=== PATIENT | male | born 1940 | race Two or more races ===

== ENCOUNTER 2021-05-23 17:53 | Inpatient (IN) | payer OTHER ==
[~2021-05-23] VITALS: Ht 177.8 cm; Wt 105.3 kg
[2021-05-23] MEDS ORDERED: FUROSEMIDE 40 MG/4 ML VIAL IV ONE (19:15)
[2021-05-23 19:18] LABS: Basophils # (auto) 0 10 ^3/uL (0-0.2); Basophils % (auto) 0.2 % (0.0-2.0); Eosinophils # (auto) 0 10 ^3/uL (0-0.8); Eosinophils % (auto) 0.1 % (0.0-7.0); Hematocrit 32.7 % (41.0-53.0); Lymphocytes # (auto) 0.7 10 ^3/uL (0.4-5.4); Lymphocytes % (auto) 7.1 % (10.0-50.0); Mean Corpuscular Hemoglobin 31.7 pg (28.0-32.0); Mean Corpuscular Hgb Conc. 33.5 g/dL (32.0-36.0); Mean Corpuscular Volume 94.7 fL (80.0-100.0); Monocytes # (auto) 0.5 10 ^3/uL (0-1.3); Monocytes % (auto) 4.8 % (0.0-12.0); Neutrophils # (auto) 8.5 10 ^3/uL (1.6-8.6); Neutrophils % (auto) 87.8 % (37.0-80.0); Red Blood Cells 3.46 10^6/uL (4.5-5.90); Red Cell Distribution Width 15.7 % (11.8-14.3); White Blood Cell 9.6 10^3/uL (4.4-10.8)
[2021-05-23 19:29] LABS: BUN/Creatinine Ratio 3.6; Calcium 7.5 mg/dL (8.5-10.1)
[2021-05-23 19:34] LABS: Bilirubin, Total 0.8 mg/dL (0.2-1.0); Total Protein 7.7 g/dL (6.4-8.2)
[2021-05-23 19:46] LABS: Potassium 6.8 mmol/L (3.5-5.1)
[2021-05-23] MEDS ORDERED: InsuLIN REG 1unit/0.01ml Soln (100units/ml) IV ONE (20:00)
[2021-05-23] MEDS ORDERED: SODIUM BICARBONATE 8.4% INJ 50ML SYRINGE IV ONE (20:00)
[2021-05-23] MEDS ORDERED: SODIUM ZIRCONIUM CYCL 10 GM PAK PO ONE (20:00)
[2021-05-23] MEDS ORDERED: DEXTROSE (50%) 50ML SYRG IV ONE (20:00)
[2021-05-23] MEDS ORDERED: ONDANSETRON HCL 4 MG/2 ML VIAL IV PRN (21:00)
[2021-05-23] MEDS ORDERED: ALBUTEROL SULF 2.5 MG/0.5ML(0.5%) NEB SOLN NEB ONE (21:00)
[2021-05-23] MEDS ORDERED: DEXTROSE (50%) 50ML SYRG IV PRN (21:00)
[2021-05-23] MEDS ORDERED: MORPHINE SULFATE INJECTION 2 MG/ML SYRG IV PRN (21:00)
[2021-05-23] MEDS ORDERED: cefTRIAXone 1GM/50ML D5W 50 ML IV ONE (21:00)
[2021-05-23] MEDS ORDERED: NITROGLYCERIN 0.4 MG SL TAB SL PRN (21:00)
[2021-05-23] MEDS ORDERED: ACETAMINOPHEN 325 MG TAB PO PRN (21:00)
[2021-05-23] MEDS ORDERED: cloNIDine HCL 0.1 MG TAB PO PRN (21:00)
[2021-05-23] MEDS ORDERED: ALBUTEROL SULF 2.5 MG/0.5ML(0.5%) NEB SOLN NEB PRN (21:00)
[2021-05-23] MEDS ORDERED: ALBUTEROL SULF 2.5 MG/0.5ML(0.5%) NEB SOLN ONE (21:13)
[2021-05-23 21:46] LABS: Lactic Acid w/Reflex 2.3 mmol/L (0.4-2.0)
[2021-05-23] MEDS ORDERED: AZITHROMYCIN 500MG/ 250ML 250 ML IV ONE (22:00)
[2021-05-23] MEDS: ATORVASTATIN 20 MG TAB PO SCH (22:00)
[2021-05-23] MEDS: InsuLIN REG 1unit/0.01ml Soln (100units/ml) SC SCH (23:45)
[2021-05-23] MEDS: ACCU-CHEK COMFORT CURVE STRIP VI SCH (23:45)
[2021-05-24 02:02] VITALS: BP 131/64
[2021-05-24] MEDS: ACCU-CHEK COMFORT CURVE STRIP VI SCH ×4 (06:35→22:26)
[2021-05-24] MEDS: InsuLIN REG 1unit/0.01ml Soln (100units/ml) SC SCH ×4 (06:36→22:28)
[2021-05-24 07:15] LABS: Basophils # (auto) 0 10 ^3/uL (0-0.2); Basophils % (auto) 0.5 % (0.0-2.0); Eosinophils # (auto) 0 10 ^3/uL (0-0.8); Eosinophils % (auto) 0.2 % (0.0-7.0); Hemoglobin 9.5 g/dL (13.5-17.5); Lymphocytes # (auto) 1.5 10 ^3/uL (0.4-5.4); Lymphocytes % (auto) 18.1 % (10.0-50.0); Mean Corpuscular Hemoglobin 31.8 pg (28.0-32.0); Mean Corpuscular Volume 93.5 fL (80.0-100.0); Monocytes # (auto) 0.7 10 ^3/uL (0-1.3); Monocytes % (auto) 8.7 % (0.0-12.0); Neutrophils # (auto) 5.9 10 ^3/uL (1.6-8.6); Neutrophils % (auto) 72.5 % (37.0-80.0); Red Blood Cells 2.99 10^6/uL (4.5-5.90); Red Cell Distribution Width 14.8 % (11.8-14.3); White Blood Cell 8.1 10^3/uL (4.4-10.8)
[2021-05-24] MEDS ORDERED: VANCOMYCIN PER PHARMACY 0 MG IV SCH (07:15)
[2021-05-24 08:03] LABS: Albumin 3.4 g/dL (3.4-5.0); Calcium 7.5 mg/dL (8.5-10.1)
[2021-05-24 08:09] LABS: BUN/Creatinine Ratio 4.1; Bilirubin, Total 0.6 mg/dL (0.2-1.0); Total Protein 6.7 g/dL (6.4-8.2)
[2021-05-24] MEDS: CALCIUM ACETATE 667 MG CAP PO SCH ×3 (08:48→16:57)
[2021-05-24] MEDS: cefTRIAXone 1GM/50ML D5W 50 ML IV SCH (08:48)
[2021-05-24] MEDS: PANTOPRAZOLE 40 MG TAB PO SCH (10:15)
[2021-05-24] MEDS: ASPirin 81 mg TAB PO SCH (10:15)
[2021-05-24] MEDS: amLODIPine BESYLATE 5 MG TAB PO SCH (10:15)
[2021-05-24] MEDS: AZITHROMYCIN 500MG/ 250ML 250 ML IV SCH (10:16)
[2021-05-24] MEDS ORDERED: SODIUM CHL 0.9% 1000 ML BAG XX ONE (11:00)
[2021-05-24] MEDS ORDERED: VANCOMYCIN 1GM/250ML 250 ML IV ONE (12:00)
[2021-05-24] MEDS: ALBUTEROL SULF 2.5 MG/0.5ML(0.5%) NEB SOLN NEB PRN ×2 (12:02→19:03)
[2021-05-24] MEDS ORDERED: CALC667C PO (16:20)
[2021-05-24] MEDS: methylPREDNISolone SOD SUCC 40 MG/ML VL IV SCH ×2 (16:37→22:20)
[2021-05-24 17:43] VITALS: BP 139/71
[2021-05-24] MEDS ORDERED: EPOETIN ALFA-EPBX 10,000 UNIT/1ML VIAL SC ONE (21:00)
[2021-05-24 22:00] VITALS: BP 137/67
[2021-05-24] MEDS: ATORVASTATIN 20 MG TAB PO SCH (22:18)
[2021-05-25 05:00] VITALS: BP 124/71
[2021-05-25 05:33] LABS: Basophils # (auto) 0 10 ^3/uL (0-0.2); Basophils % (auto) 0.1 % (0.0-2.0); Eosinophils # (auto) 0 10 ^3/uL (0-0.8); Hematocrit 25.1 % (41.0-53.0); Hemoglobin 8.7 g/dL (13.5-17.5); Lymphocytes # (auto) 0.5 10 ^3/uL (0.4-5.4); Lymphocytes % (auto) 10.1 % (10.0-50.0); Mean Corpuscular Hgb Conc. 34.5 g/dL (32.0-36.0); Mean Corpuscular Volume 92.8 fL (80.0-100.0); Monocytes # (auto) 0.1 10 ^3/uL (0-1.3); Monocytes % (auto) 2.2 % (0.0-12.0); Neutrophils # (auto) 4.2 10 ^3/uL (1.6-8.6); Neutrophils % (auto) 87.6 % (37.0-80.0); Red Blood Cells 2.71 10^6/uL (4.5-5.90); Red Cell Distribution Width 14.9 % (11.8-14.3); White Blood Cell 4.8 10^3/uL (4.4-10.8)
[2021-05-25 05:48] LABS: Calcium 7.4 mg/dL (8.5-10.1); Potassium 5.2 mmol/L (3.5-5.1)
[2021-05-25 05:50] LABS: BUN/Creatinine Ratio 5.2
[2021-05-25] MEDS: ACCU-CHEK COMFORT CURVE STRIP VI SCH ×4 (06:22→21:47)
[2021-05-25] MEDS: InsuLIN REG 1unit/0.01ml Soln (100units/ml) SC SCH ×4 (06:26→21:48)
[2021-05-25] MEDS: methylPREDNISolone SOD SUCC 40 MG/ML VL IV SCH ×3 (06:35→21:41)
[2021-05-25] MEDS: CALCIUM ACETATE 667 MG CAP PO SCH ×3 (08:00→18:26)
[2021-05-25] MEDS: cefTRIAXone 1GM/50ML D5W 50 ML IV SCH (08:45)
[2021-05-25 09:00] VITALS: BP 128/69
[2021-05-25] MEDS: AZITHROMYCIN 500MG/ 250ML 250 ML IV SCH (10:00)
[2021-05-25] MEDS: PANTOPRAZOLE 40 MG TAB PO SCH (10:01)
[2021-05-25] MEDS: amLODIPine BESYLATE 5 MG TAB PO SCH ×2 (10:01→17:39)
[2021-05-25] MEDS: ASPirin 81 mg TAB PO SCH (10:01)
[2021-05-25] MEDS: ALBUTEROL SULF 2.5 MG/0.5ML(0.5%) NEB SOLN NEB PRN (12:12)
[2021-05-25 13:00] VITALS: BP 144/70
[2021-05-25] MEDS ORDERED: VANCOMYCIN 1GM/250ML 250 ML IV ONE (13:00)
[2021-05-25 16:45] VITALS: BP 148/98
[2021-05-25] MEDS: ATORVASTATIN 20 MG TAB PO SCH (21:42)
[2021-05-25 22:00] VITALS: BP 132/63
[2021-05-26 05:02] VITALS: BP 141/88
[2021-05-26 05:29] LABS: Basophils # (auto) 0 10 ^3/uL (0-0.2); Basophils % (auto) 0.1 % (0.0-2.0); Eosinophils # (auto) 0 10 ^3/uL (0-0.8); Hematocrit 26.2 % (41.0-53.0); Lymphocytes # (auto) 0.7 10 ^3/uL (0.4-5.4); Lymphocytes % (auto) 7.1 % (10.0-50.0); Mean Corpuscular Hemoglobin 31.8 pg (28.0-32.0); Mean Corpuscular Hgb Conc. 34.5 g/dL (32.0-36.0); Mean Corpuscular Volume 92.2 fL (80.0-100.0); Monocytes # (auto) 0.2 10 ^3/uL (0-1.3); Monocytes % (auto) 2.3 % (0.0-12.0); Neutrophils # (auto) 8.3 10 ^3/uL (1.6-8.6); Neutrophils % (auto) 90.5 % (37.0-80.0); Nucleated Red Blood Cells % 0.1 %; Red Blood Cells 2.84 10^6/uL (4.5-5.90); Red Cell Distribution Width 14.8 % (11.8-14.3); White Blood Cell 9.2 10^3/uL (4.4-10.8)
[2021-05-26] MEDS: InsuLIN REG 1unit/0.01ml Soln (100units/ml) SC SCH ×4 (06:14→22:41)
[2021-05-26] MEDS: methylPREDNISolone SOD SUCC 40 MG/ML VL IV SCH ×3 (06:14→22:30)
[2021-05-26] MEDS: ACCU-CHEK COMFORT CURVE STRIP VI SCH ×4 (06:16→22:36)
[2021-05-26] MEDS ORDERED: SODIUM CHL 0.9% 1000 ML BAG XX ONE (07:00)
[2021-05-26] MEDS: CALCIUM ACETATE 667 MG CAP PO SCH ×3 (08:27→18:51)
[2021-05-26 09:00] VITALS: BP 161/97
[2021-05-26] MEDS: amLODIPine BESYLATE 5 MG TAB PO SCH (10:00)
[2021-05-26] MEDS: ASPirin 81 mg TAB PO SCH (10:00)
[2021-05-26] MEDS: PANTOPRAZOLE 40 MG TAB PO SCH (10:00)
[2021-05-26 12:09] VITALS: BP 155/87
[2021-05-26] MEDS ORDERED: VANCOMYCIN 1GM/250ML 250 ML IV ONE (15:00)
[2021-05-26 17:00] VITALS: BP 168/102
[2021-05-26] MEDS ORDERED: AMIODARONE HCL 150 MG in D5W 5% 100 ML IV ONE (17:15)
[2021-05-26] MEDS ORDERED: AMIODARONE 450mg/250ml AE 250 ML IV SCH (17:30)
[2021-05-26] MEDS ORDERED: ALBUAER3 IN (18:14)
[2021-05-26] MEDS: HEPARIN DRIP/D5W 100UNITS/ML 250 ML IV SCH ×2 (20:00→20:28)
[2021-05-26 20:13] LABS: Basophils # (auto) 0 10 ^3/uL (0-0.2); Basophils % (auto) 0.1 % (0.0-2.0); Eosinophils # (auto) 0 10 ^3/uL (0-0.8); Hematocrit 30.8 % (41.0-53.0); Hemoglobin 10.5 g/dL (13.5-17.5); Lymphocytes # (auto) 0.6 10 ^3/uL (0.4-5.4); Lymphocytes % (auto) 5.1 % (10.0-50.0); Mean Corpuscular Hemoglobin 31.4 pg (28.0-32.0); Mean Corpuscular Hgb Conc. 34.1 g/dL (32.0-36.0); Monocytes # (auto) 0.3 10 ^3/uL (0-1.3); Monocytes % (auto) 2.7 % (0.0-12.0); Neutrophils # (auto) 11.6 10 ^3/uL (1.6-8.6); Neutrophils % (auto) 92.1 % (37.0-80.0); Nucleated Red Blood Cells % 0.1 %; Red Blood Cells 3.35 10^6/uL (4.5-5.90); Red Cell Distribution Width 14.9 % (11.8-14.3); White Blood Cell 12.5 10^3/uL (4.4-10.8)
[2021-05-26 20:28] LABS: INR 1.06 (0.9-1.15); Partial Thromboplastin Time 25.6 sec (23.0-31.2)
[2021-05-26] MEDS ORDERED: EPOETIN ALFA-EPBX 10,000 UNIT/1ML VIAL SC ONE (21:00)
[2021-05-26 22:00] VITALS: BP 155/76
[2021-05-26] MEDS: ATORVASTATIN 20 MG TAB PO SCH (22:30)
[2021-05-26] MEDS: ALBUTEROL SULF 2.5 MG/0.5ML(0.5%) NEB SOLN NEB PRN (23:18)
[2021-05-27 03:02] LABS: Basophils # (auto) 0 10 ^3/uL (0-0.2); Basophils % (auto) 0.1 % (0.0-2.0); Eosinophils # (auto) 0 10 ^3/uL (0-0.8); Hematocrit 26.8 % (41.0-53.0); Hemoglobin 9.4 g/dL (13.5-17.5); Lymphocytes # (auto) 0.6 10 ^3/uL (0.4-5.4); Lymphocytes % (auto) 6.2 % (10.0-50.0); Mean Corpuscular Hemoglobin 32.4 pg (28.0-32.0); Mean Corpuscular Hgb Conc. 35.1 g/dL (32.0-36.0); Mean Corpuscular Volume 92.5 fL (80.0-100.0); Monocytes # (auto) 0.3 10 ^3/uL (0-1.3); Monocytes % (auto) 2.8 % (0.0-12.0); Neutrophils # (auto) 9.2 10 ^3/uL (1.6-8.6); Neutrophils % (auto) 90.9 % (37.0-80.0); Nucleated Red Blood Cells % 0.1 %; Red Cell Distribution Width 14.7 % (11.8-14.3); White Blood Cell 10.1 10^3/uL (4.4-10.8)
[2021-05-27 03:04] LABS: INR 1.08 (0.9-1.15); Partial Thromboplastin Time 39.4 sec (23.0-31.2)
[2021-05-27 03:09] LABS: BUN/Creatinine Ratio 8.2; Calcium 7.8 mg/dL (8.5-10.1); Potassium 4.4 mmol/L (3.5-5.1)
[2021-05-27 05:00] VITALS: BP 156/81
[2021-05-27] MEDS ORDERED: AMIODARONE 450mg/250ml AE 250 ML IV ONE (06:23)
[2021-05-27] MEDS: InsuLIN REG 1unit/0.01ml Soln (100units/ml) SC SCH ×4 (06:53→22:31)
[2021-05-27] MEDS: ACCU-CHEK COMFORT CURVE STRIP VI SCH ×4 (06:54→22:29)
[2021-05-27] MEDS: methylPREDNISolone SOD SUCC 40 MG/ML VL IV SCH (07:07)
[2021-05-27] MEDS: CALCIUM ACETATE 667 MG CAP PO SCH ×3 (08:00→17:57)
[2021-05-27] MEDS: ASPirin 81 mg TAB PO SCH (08:01)
[2021-05-27] MEDS: amLODIPine BESYLATE 5 MG TAB PO SCH (08:01)
[2021-05-27] MEDS: PANTOPRAZOLE 40 MG TAB PO SCH (08:01)
[2021-05-27] MEDS: ALBUTEROL SULF 2.5 MG/0.5ML(0.5%) NEB SOLN NEB PRN ×2 (08:56→09:38)
[2021-05-27 09:00] VITALS: BP 158/111
[2021-05-27] MEDS ORDERED: HEPARIN DRIP/D5W 100UNITS/ML 250 ML IV SCH ×2 (11:45→16:15)
[2021-05-27 13:00] VITALS: BP 131/82
[2021-05-27] MEDS: AMIODARONE HCL 200 MG TAB PO SCH ×2 (16:11→22:28)
[2021-05-27 17:00] VITALS: BP 150/77
[2021-05-27] MEDS: ALBUTEROL SULF 2.5 MG/0.5ML(0.5%) NEB SOLN NEB SCH (17:36)
[2021-05-27] MEDS: APIXABAN 2.5 MG TAB PO SCH (17:57)
[2021-05-27] MEDS ORDERED: VANCOMYCIN 500 MG in D5W 5% 100 ML IV ONE (18:00)
[2021-05-27 19:26] VITALS: BP 150/77
[2021-05-27] MEDS: predniSONE 20 MG TAB PO SCH (22:27)
[2021-05-27] MEDS: ATORVASTATIN 20 MG TAB PO SCH (22:28)
[2021-05-27] MEDS: METOPROLOL TARTRATE 25 MG TAB PO SCH (22:28)
[2021-05-27] MEDS ORDERED: LORazepam 2MG/ML-1ML VIAL IV PRN (23:15)
[2021-05-27 23:19] VITALS: BP 159/83
[2021-05-28 05:29] VITALS: BP 157/81
[2021-05-28 05:41] LABS: Cholesterol 116 mg/dL (< 200)
[2021-05-28 05:44] LABS: HDL Cholesterol 56 mg/dL (40-59); LDL Cholesterol 47 mg/dL (< 100); Triglycerides 110 mg/dL (< 150)
[2021-05-28] MEDS: APIXABAN 2.5 MG TAB PO SCH ×2 (06:07→17:41)
[2021-05-28] MEDS: ACCU-CHEK COMFORT CURVE STRIP VI SCH ×4 (06:07→22:25)
[2021-05-28] MEDS: InsuLIN REG 1unit/0.01ml Soln (100units/ml) SC SCH ×4 (06:11→22:27)
[2021-05-28] MEDS: ALBUTEROL SULF 2.5 MG/0.5ML(0.5%) NEB SOLN NEB SCH ×3 (06:35→19:03)
[2021-05-28] MEDS: CALCIUM ACETATE 667 MG CAP PO SCH ×3 (08:14→18:03)
[2021-05-28 09:00] VITALS: BP 162/94
[2021-05-28] MEDS: amLODIPine BESYLATE 5 MG TAB PO SCH (10:00)
[2021-05-28] MEDS ORDERED: VANCOMYCIN 500 MG in D5W 5% 100 ML IV ONE (10:00)
[2021-05-28] MEDS: predniSONE 20 MG TAB PO SCH ×2 (10:07→22:21)
[2021-05-28] MEDS: PANTOPRAZOLE 40 MG TAB PO SCH (10:07)
[2021-05-28] MEDS: ASPirin 81 mg TAB PO SCH (10:07)
[2021-05-28] MEDS: AMIODARONE HCL 200 MG TAB PO SCH ×2 (10:07→22:21)
[2021-05-28] MEDS: METOPROLOL TARTRATE 25 MG TAB PO SCH ×2 (10:51→22:20)
[2021-05-28 13:00] VITALS: BP 161/71
[2021-05-28 17:00] VITALS: BP 158/71
[2021-05-28 22:00] VITALS: BP 143/78
[2021-05-28] MEDS: ATORVASTATIN 20 MG TAB PO SCH (22:21)
[2021-05-28] MEDS: ZOLPIDEM TARTRATE 5 MG TAB PO PRN (22:22)
[2021-05-29 05:20] VITALS: BP 161/86
[2021-05-29] MEDS: APIXABAN 2.5 MG TAB PO SCH ×2 (06:28→17:50)
[2021-05-29] MEDS: ACCU-CHEK COMFORT CURVE STRIP VI SCH ×4 (06:30→22:00)
[2021-05-29] MEDS: InsuLIN REG 1unit/0.01ml Soln (100units/ml) SC SCH ×4 (06:37→22:00)
[2021-05-29] MEDS ORDERED: SODIUM CHL 0.9% 1000 ML BAG XX ONE (07:00)
[2021-05-29] MEDS: ALBUTEROL SULF 2.5 MG/0.5ML(0.5%) NEB SOLN NEB SCH ×3 (07:12→18:51)
[2021-05-29] MEDS: CALCIUM ACETATE 667 MG CAP PO SCH ×3 (07:47→17:50)
[2021-05-29 08:55] VITALS: BP 125/70
[2021-05-29] MEDS ORDERED: cefTRIAXone 1GM/50ML D5W 50 ML IV SCH (09:00)
[2021-05-29] MEDS: predniSONE 20 MG TAB PO SCH ×2 (09:19→22:00)
[2021-05-29] MEDS: ASPirin 81 mg TAB PO SCH (09:19)
[2021-05-29] MEDS: METOPROLOL TARTRATE 25 MG TAB PO SCH ×2 (09:20→22:00)
[2021-05-29] MEDS: AMIODARONE HCL 200 MG TAB PO SCH ×2 (09:20→22:00)
[2021-05-29] MEDS: amLODIPine BESYLATE 5 MG TAB PO SCH (09:20)
[2021-05-29] MEDS: PANTOPRAZOLE 40 MG TAB PO SCH (09:21)
[2021-05-29 10:46] LABS: Folate (Folic Acid) 5.93 ng/mL (5.38-24)
[2021-05-29] MEDS ORDERED: cefTRIAXone 1GM/50ML D5W 50 ML IV ONE (11:30)
[2021-05-29 12:12] LABS: Potassium 4.5 mmol/L (3.5-5.1)
[2021-05-29 12:23] LABS: BUN/Creatinine Ratio 11.2; Calcium 8.3 mg/dL (8.5-10.1)
[2021-05-29 12:54] VITALS: BP 177/86
[2021-05-29 15:57] LABS: Basophils # (auto) 0 10 ^3/uL (0-0.2); Basophils % (auto) 0.4 % (0.0-2.0); Eosinophils # (auto) 0 10 ^3/uL (0-0.8); Hematocrit 31.9 % (41.0-53.0); Hemoglobin 10.8 g/dL (13.5-17.5); Lymphocytes # (auto) 1.4 10 ^3/uL (0.4-5.4); Lymphocytes % (auto) 11.2 % (10.0-50.0); Mean Corpuscular Hemoglobin 31.1 pg (28.0-32.0); Mean Corpuscular Hgb Conc. 33.8 g/dL (32.0-36.0); Mean Corpuscular Volume 92.1 fL (80.0-100.0); Monocytes # (auto) 0.5 10 ^3/uL (0-1.3); Monocytes % (auto) 3.7 % (0.0-12.0); Neutrophils # (auto) 10.3 10 ^3/uL (1.6-8.6); Neutrophils % (auto) 84.7 % (37.0-80.0); Nucleated Red Blood Cells % 0.5 %; Red Blood Cells 3.47 10^6/uL (4.5-5.90); Red Cell Distribution Width 14.9 % (11.8-14.3); White Blood Cell 12.2 10^3/uL (4.4-10.8)
[2021-05-29 16:45] VITALS: BP 142/85
[2021-05-29 18:10] LABS: Urine Bacteria NONE SEEN /hpf (None Seen); Urine Blood TRACE /uL (Negative); Urine Specific Gravity 1.006 (1.001-1.035); Urine WBC 1 /hpf (0 - 3)
[2021-05-29 20:00] VITALS: BP 166/77
[2021-05-29] MEDS ORDERED: EPOETIN ALFA-EPBX 10,000 UNIT/1ML VIAL SC ONE (21:00)
[2021-05-29 22:00] VITALS: BP 166/77
[2021-05-29] MEDS: ATORVASTATIN 20 MG TAB PO SCH (22:00)
[2021-05-29] MEDS: ZOLPIDEM TARTRATE 5 MG TAB PO PRN (22:50)
[2021-05-30] VITALS (8 sets, daily range): BP systolic 135–172; BP diastolic 66–90
[2021-05-30] MEDS: APIXABAN 2.5 MG TAB PO SCH ×2 (06:07→17:55)
[2021-05-30] MEDS: ACCU-CHEK COMFORT CURVE STRIP VI SCH ×4 (06:42→22:17)
[2021-05-30] MEDS: InsuLIN REG 1unit/0.01ml Soln (100units/ml) SC SCH ×4 (06:42→22:16)
[2021-05-30 06:46] LABS: Hematocrit 30.3 % (41.0-53.0); Hemoglobin 10.4 g/dL (13.5-17.5); Mean Corpuscular Hemoglobin 31.7 pg (28.0-32.0); Mean Corpuscular Hgb Conc. 34.4 g/dL (32.0-36.0); Mean Corpuscular Volume 92.3 fL (80.0-100.0); Red Blood Cells 3.28 10^6/uL (4.5-5.90); Red Cell Distribution Width 15.3 % (11.8-14.3); White Blood Cell 11.5 10^3/uL (4.4-10.8)
[2021-05-30] MEDS: ALBUTEROL SULF 2.5 MG/0.5ML(0.5%) NEB SOLN NEB SCH ×3 (06:55→18:59)
[2021-05-30] MEDS ORDERED: SODIUM CHL 0.9% 1000 ML BAG XX ONE (07:00)
[2021-05-30 07:04] LABS: Band Neutrophils % (manual) 0; Basophils % (manual) 0 (0.0-2.0); Blast Cells 0; Eosinophils % (manual) 0 (0-7); Metamyelocytes % 0; Myelocytes % 0; Promyelocytes % 0; Reactive Lymphocytes 0
[2021-05-30 07:06] LABS: Potassium 5.1 mmol/L (3.5-5.1)
[2021-05-30 07:15] LABS: BUN/Creatinine Ratio 11.7; Calcium 8.3 mg/dL (8.5-10.1); Magnesium 2.9 mg/dL (1.6-2.6)
[2021-05-30 07:52] LABS: Lymphocytes % (manual) 30 (10.0-50.0); Monocytes % (manual) 6 (0-12)
[2021-05-30] MEDS: CALCIUM ACETATE 667 MG CAP PO SCH ×3 (08:34→17:55)
[2021-05-30] MEDS: ASPirin 81 mg TAB PO SCH (10:46)
[2021-05-30] MEDS: predniSONE 20 MG TAB PO SCH (10:48)
[2021-05-30] MEDS: METOPROLOL TARTRATE 25 MG TAB PO SCH ×2 (10:49→22:13)
[2021-05-30] MEDS: AMIODARONE HCL 200 MG TAB PO SCH ×2 (10:49→22:03)
[2021-05-30] MEDS: PANTOPRAZOLE 40 MG TAB PO SCH (10:50)
[2021-05-30] MEDS: amLODIPine BESYLATE 5 MG TAB PO SCH (10:50)
[2021-05-30] MEDS: CEFTRIAXONE SODIUM 2 GM in D5W 5% 50 ML IV SCH (11:25)
[2021-05-30] MEDS ORDERED: EPOETIN ALFA-EPBX 10,000 UNIT/1ML VIAL SC ONE (21:00)
[2021-05-30] MEDS: ZOLPIDEM TARTRATE 5 MG TAB PO PRN (22:00)
[2021-05-30] MEDS: ATORVASTATIN 20 MG TAB PO SCH (22:04)
[2021-05-31 05:00] VITALS: BP 148/78
[2021-05-31] MEDS: APIXABAN 2.5 MG TAB PO SCH ×2 (06:00→17:58)
[2021-05-31] MEDS: InsuLIN REG 1unit/0.01ml Soln (100units/ml) SC SCH ×3 (06:39→17:00)
[2021-05-31] MEDS: ACCU-CHEK COMFORT CURVE STRIP VI SCH ×3 (06:41→17:00)
[2021-05-31] MEDS ORDERED: SODIUM CHL 0.9% 1000 ML BAG XX ONE (07:00)
[2021-05-31 07:34] LABS: Hematocrit 29.8 % (41.0-53.0); Hemoglobin 10.1 g/dL (13.5-17.5)
[2021-05-31] MEDS: ALBUTEROL SULF 2.5 MG/0.5ML(0.5%) NEB SOLN NEB SCH ×3 (07:34→18:00)
[2021-05-31 07:58] LABS: BUN/Creatinine Ratio 12.8; Calcium 7.9 mg/dL (8.5-10.1); Potassium 5.2 mmol/L (3.5-5.1)
[2021-05-31 08:51] VITALS: BP 157/73
[2021-05-31] MEDS: CEFTRIAXONE SODIUM 2 GM in D5W 5% 50 ML IV SCH (09:25)
[2021-05-31] MEDS: ASPirin 81 mg TAB PO SCH (09:26)
[2021-05-31] MEDS: amLODIPine BESYLATE 5 MG TAB PO SCH (09:27)
[2021-05-31] MEDS: PANTOPRAZOLE 40 MG TAB PO SCH (09:27)
[2021-05-31] MEDS: CALCIUM ACETATE 667 MG CAP PO SCH ×2 (09:27→12:07)
[2021-05-31] MEDS: AMIODARONE HCL 200 MG TAB PO SCH (09:28)
[2021-05-31] MEDS: METOPROLOL TARTRATE 25 MG TAB PO SCH (09:30)
[2021-05-31 13:05] VITALS: BP 155/73
[2021-05-31] MEDS ORDERED: SODIUM ZIRCONIUM CYCL 10 GM PAK PO ONE (13:15)
[2021-05-31 16:49] VITALS: BP 160/83
[2021-05-31 17:00] VITALS: BP 159/78
[2021-05-31 17:42] VITALS: BP 159/78
[2021-05-31] MEDS ORDERED: EPOETIN ALFA-EPBX 10,000 UNIT/1ML VIAL SC ONE (21:00)
== END 2021-05-31 18:40 | disposition home health service (06) | DRG 193 ==
LOC: EDBD 17:53 → ER 17:53 → TELE 20:50 → TELE-WESTW 05-24 16:06
PROVIDERS: ADMIT Internal Medicine; ATTEND Internal Medicine
PROC: 5A1D70Z Performance of Urinary Filtration, Intermittent, Less than 6 Hours Per Day (ICD-10-PCS; 2021-05-24)
PROC: 5A1D70Z Performance of Urinary Filtration, Intermittent, Less than 6 Hours Per Day (ICD-10-PCS; principal; 2021-05-26)
PROC: 05HC33Z Insertion of Infusion Device into Left Basilic Vein, Percutaneous Approach (ICD-10-PCS; 2021-05-26)
PROC: B54NZZA Ultrasonography of Left Upper Extremity Veins, Guidance (ICD-10-PCS; 2021-05-26)
PROC: 5A1D70Z Performance of Urinary Filtration, Intermittent, Less than 6 Hours Per Day (ICD-10-PCS; 2021-05-30)
DX: J18.9 Pneumonia, unspecified organism (principal); J96.01 Acute respiratory failure with hypoxia; N18.6 End stage renal disease; J44.0 Chronic obstructive pulmonary disease with (acute) lower respiratory infection; R78.81 Bacteremia; C18.9 Malignant neoplasm of colon, unspecified; I13.2 Hypertensive heart and chronic kidney disease with heart failure and with stage 5 chronic kidney disease, or end stage renal disease; E87.1 Hypo-osmolality and hyponatremia; J44.1 Chronic obstructive pulmonary disease with (acute) exacerbation; I48.91 Unspecified atrial fibrillation; E87.5 Hyperkalemia; E66.9 Obesity, unspecified; D63.1 Anemia in chronic kidney disease; E78.5 Hyperlipidemia, unspecified; B95.4 Other streptococcus as the cause of diseases classified elsewhere; E11.22 Type 2 diabetes mellitus with diabetic chronic kidney disease; E11.42 Type 2 diabetes mellitus with diabetic polyneuropathy; I50.9 Heart failure, unspecified; Z20.822 Contact with and (suspected) exposure to COVID-19; R53.81 Other malaise; Z99.2 Dependence on renal dialysis; Z68.33 Body mass index [BMI] 33.0-33.9, adult; Z79.01 Long term (current) use of anticoagulants; Z79.899 Other long term (current) drug therapy
CPT/HCPCS: 36415; 70450; 70551; 71045; 80048; 80053; 80061; 80202; 81001; 82565; 82607; 82728; 82746; 82962; 83605; 83615; 83735; 83880; 84100; 84132; 84443; 84484; 85007; 85014; 85018; 85025; 85027; 85610; 85730; 87040; 87077; 87081; 87186; 87340; 87426; 90935; 93005; 93306; 93886; 93971; 94640; 96365; 96366; 96367; 96375; 97110; 97116; 97530; 99291; G0378; J0696; J1642; J1815; J7060

== ENCOUNTER 2021-07-18 08:44 | Inpatient (IN) | payer OTHER ==
[~2021-07-18] VITALS: Ht 170.2 cm; Wt 101.7 kg
[~2021-07-18 08:44] MED LIST: ALBUAER3 IN; CALC667C PO
[2021-07-18 09:00] VITALS: BP 183/89
[2021-07-18 09:13] LABS: Basophils # (auto) 0.1 10 ^3/uL (0-0.2); Basophils % (auto) 0.5 % (0.0-2.0); Eosinophils # (auto) 0.3 10 ^3/uL (0-0.8); Eosinophils % (auto) 1.8 % (0.0-7.0); Hematocrit 32.4 % (41.0-53.0); Hemoglobin 10.6 g/dL (13.5-17.5); Lymphocytes # (auto) 4.5 10 ^3/uL (0.4-5.4); Lymphocytes % (auto) 27.5 % (10.0-50.0); Mean Corpuscular Hemoglobin 30.6 pg (28.0-32.0); Mean Corpuscular Hgb Conc. 32.6 g/dL (32.0-36.0); Mean Corpuscular Volume 93.8 fL (80.0-100.0); Monocytes % (auto) 6.1 % (0.0-12.0); Neutrophils # (auto) 10.5 10 ^3/uL (1.6-8.6); Neutrophils % (auto) 64.1 % (37.0-80.0); Red Blood Cells 3.45 10^6/uL (4.5-5.90); White Blood Cell 16.4 10^3/uL (4.4-10.8)
[2021-07-18] MEDS ORDERED: ALBUTEROL SULF 2.5 MG/0.5ML(0.5%) NEB SOLN NEB ONE (09:15)
[2021-07-18] MEDS ORDERED: NITROGLYCERIN 50MG/250ML 250 ML IV ONE (09:15)
[2021-07-18] MEDS ORDERED: methylPREDNISolone SOD SUCC 125 MG/2 ML VL IV ONE (09:15)
[2021-07-18] MEDS ORDERED: IPRATROPIUM BROM 0.5 MG/2.5ML INH SOL NEB ONE (09:15)
[2021-07-18 09:28] LABS: Alanine Aminotransferase 23 U/L (16-61); Albumin 3.8 g/dL (3.4-5.0); Anion Gap 10 (5-15); Aspartate Aminotransferase 21 U/L (15-37); BUN/Creatinine Ratio 4.1; Blood Urea Nitrogen 31 mg/dL (7-18); Calcium 7.9 mg/dL (8.5-10.1); Carbon Dioxide 25 mmol/L (21-32); Chloride 102 mmol/L (98-107); GFR African American 9 mL/min; GFR Non-African American 7 mL/min; Glucose 223 mg/dL (74-106); Sodium 137 mmol/L (136-145)
[2021-07-18 09:33] LABS: Alkaline Phosphatase 102 U/L (45-117); Bilirubin, Total 0.7 mg/dL (0.2-1.0); Total Protein 7.3 g/dL (6.4-8.2)
[2021-07-18 09:38] LABS: Potassium 5.9 mmol/L (3.5-5.1)
[2021-07-18] MEDS ORDERED: DEXTROSE (50%) 50ML SYRG IV ONE (10:30)
[2021-07-18] MEDS ORDERED: VANCOMYCIN PER PHARMACY 0 MG IV SCH (10:30)
[2021-07-18] MEDS ORDERED: CALCIUM GLUC 1,000mg/50ml-NS 50 ML IV ONE (10:30)
[2021-07-18] MEDS ORDERED: PIPERACILLIN-TAZOB 3.375GM 100 ML IV ONE (10:30)
[2021-07-18] MEDS ORDERED: INSULIN LISPRO (HUMAN) 100 UNITS/ML ML SC ONE (10:30)
[2021-07-18] MEDS ORDERED: MORPHINE SULFATE INJECTION 2 MG/ML SYRG IV PRN (10:45)
[2021-07-18] MEDS ORDERED: DEXTROSE (50%) 50ML SYRG IV PRN (10:45)
[2021-07-18] MEDS ORDERED: ACETAMINOPHEN 500 MG TAB PO PRN (10:45)
[2021-07-18] MEDS ORDERED: NITROGLYCERIN 0.4 MG SL TAB SL PRN (10:45)
[2021-07-18] MEDS ORDERED: ONDANSETRON HCL 4 MG/2 ML VIAL IV PRN (10:45)
[2021-07-18] MEDS ORDERED: SODIUM ZIRCONIUM CYCL 10 GM PAK PO ONE (11:15)
[2021-07-18] MEDS ORDERED: FUROSEMIDE 40 MG/4 ML VIAL IV ONE (11:30)
[2021-07-18] MEDS ORDERED: ATROPINE SULF 1 MG/10ml SYR IV ONE (11:30)
[2021-07-18] MEDS ORDERED: ATROPINE SULFATE 1 MG/1 ML VIAL ONE (11:46)
[2021-07-18] MEDS ORDERED: DOPamine 1600MCG/ML D5W 250 ML IV ONE (12:00)
[2021-07-18 12:01] LABS: Urine Bacteria NONE SEEN /hpf (None Seen); Urine Blood Negative /uL (Negative); Urine Specific Gravity 1.012 (1.001-1.035); Urine WBC 2 /hpf (0 - 3)
[2021-07-18] MEDS: InsuLIN REG 1unit/0.01ml Soln (100units/ml) SC SCH ×2 (13:57→17:36)
[2021-07-18] MEDS: ACCU-CHEK COMFORT CURVE STRIP VI SCH ×2 (13:57→17:36)
[2021-07-18] MEDS ORDERED: VANCOMYCIN 1GM/250ML 250 ML IV ONE (14:00)
[2021-07-18] MEDS: BUDESONIDE (INHALATION) 0.5 MG/2 ML NEB NEB SCH (22:49)
[2021-07-19] MEDS: ACCU-CHEK COMFORT CURVE STRIP VI SCH ×5 (00:20→23:25)
[2021-07-19 05:34] LABS: Basophils # (auto) 0 10 ^3/uL (0-0.2); Basophils % (auto) 0.2 % (0.0-2.0); Eosinophils # (auto) 0 10 ^3/uL (0-0.8); Hematocrit 28.7 % (41.0-53.0); Hemoglobin 9.4 g/dL (13.5-17.5); Lymphocytes # (auto) 0.6 10 ^3/uL (0.4-5.4); Lymphocytes % (auto) 9.2 % (10.0-50.0); Mean Corpuscular Hemoglobin 30.7 pg (28.0-32.0); Mean Corpuscular Hgb Conc. 32.6 g/dL (32.0-36.0); Mean Corpuscular Volume 94.1 fL (80.0-100.0); Monocytes # (auto) 0.1 10 ^3/uL (0-1.3); Monocytes % (auto) 2.2 % (0.0-12.0); Neutrophils # (auto) 5.7 10 ^3/uL (1.6-8.6); Neutrophils % (auto) 88.4 % (37.0-80.0); Red Blood Cells 3.05 10^6/uL (4.5-5.90); Red Cell Distribution Width 15.3 % (11.8-14.3); White Blood Cell 6.5 10^3/uL (4.4-10.8)
[2021-07-19] MEDS: BUDESONIDE (INHALATION) 0.5 MG/2 ML NEB NEB SCH ×2 (05:34→22:00)
[2021-07-19] MEDS: InsuLIN REG 1unit/0.01ml Soln (100units/ml) SC SCH ×5 (05:45→23:25)
[2021-07-19] MEDS ORDERED: SODIUM CHL 0.9% 1000 ML BAG XX ONE (07:00)
[2021-07-19] MEDS: cefTRIAXone 1GM/50ML D5W 50 ML IV SCH (09:50)
[2021-07-19] MEDS ORDERED: DexAMETHasone SOD PHOS 10MG/1ML VIAL INJ IV SCH (10:00)
[2021-07-19] MEDS ORDERED: VANCOMYCIN 1GM/250ML 250 ML IV ONE (12:00)
[2021-07-19 13:00] LABS: BUN/Creatinine Ratio 6.1; Calcium 7.8 mg/dL (8.5-10.1)
[2021-07-19] MEDS ORDERED: EPOETIN ALFA-EPBX 10,000 UNIT/1ML VIAL SC ONE (21:00)
[2021-07-19 22:00] VITALS: BP 162/98
[2021-07-19 22:53] VITALS: BP 162/98
[2021-07-19 23:10] VITALS: BP 134/77
[2021-07-20 05:00] VITALS: BP 121/64
[2021-07-20] MEDS: ACCU-CHEK COMFORT CURVE STRIP VI SCH ×3 (05:34→17:35)
[2021-07-20] MEDS: InsuLIN REG 1unit/0.01ml Soln (100units/ml) SC SCH ×3 (05:34→17:35)
[2021-07-20 05:54] LABS: Basophils # (auto) 0 10 ^3/uL (0-0.2); Basophils % (auto) 0.2 % (0.0-2.0); Eosinophils # (auto) 0 10 ^3/uL (0-0.8); Eosinophils % (auto) 0.2 % (0.0-7.0); Hematocrit 29.1 % (41.0-53.0); Hemoglobin 9.8 g/dL (13.5-17.5); Lymphocytes # (auto) 1.8 10 ^3/uL (0.4-5.4); Lymphocytes % (auto) 17.2 % (10.0-50.0); Mean Corpuscular Hemoglobin 31.1 pg (28.0-32.0); Mean Corpuscular Hgb Conc. 33.5 g/dL (32.0-36.0); Mean Corpuscular Volume 92.9 fL (80.0-100.0); Monocytes # (auto) 0.8 10 ^3/uL (0-1.3); Monocytes % (auto) 7.4 % (0.0-12.0); Neutrophils # (auto) 7.7 10 ^3/uL (1.6-8.6); Red Blood Cells 3.13 10^6/uL (4.5-5.90); Red Cell Distribution Width 15.4 % (11.8-14.3); White Blood Cell 10.2 10^3/uL (4.4-10.8)
[2021-07-20] MEDS: BUDESONIDE (INHALATION) 0.5 MG/2 ML NEB NEB SCH (06:31)
[2021-07-20 06:32] LABS: Calcium 7.6 mg/dL (8.5-10.1); Potassium 4.5 mmol/L (3.5-5.1)
[2021-07-20] MEDS ORDERED: SODIUM CHL 0.9% 1000 ML BAG XX ONE (07:00)
[2021-07-20 08:00] VITALS: BP 131/62
[2021-07-20] MEDS: cefTRIAXone 1GM/50ML D5W 50 ML IV SCH (08:59)
[2021-07-20 13:00] VITALS: BP 155/78
[2021-07-20] MEDS ORDERED: VANCOMYCIN 1GM/250ML 250 ML IV ONE (16:00)
[2021-07-20 17:00] VITALS: BP 131/73
[2021-07-20 17:51] VITALS: BP 155/78
[2021-07-20] MEDS ORDERED: EPOETIN ALFA-EPBX 10,000 UNIT/1ML VIAL SC ONE (21:00)
== END 2021-07-20 21:50 | disposition home health service (06) | DRG 291 ==
LOC: ER 08:44 → EDBD 08:44 → TELE 10:34 → TELE-WESTW 07-19 22:13
PROVIDERS: ADMIT Hospitalist; ATTEND Hospitalist
PROC: 5A09357 Assistance with Respiratory Ventilation, Less than 24 Consecutive Hours, Continuous Positive Airway Pressure (ICD-10-PCS; principal; 2021-07-18)
PROC: 5A1D70Z Performance of Urinary Filtration, Intermittent, Less than 6 Hours Per Day (ICD-10-PCS; 2021-07-18)
PROC: 5A1D70Z Performance of Urinary Filtration, Intermittent, Less than 6 Hours Per Day (ICD-10-PCS; 2021-07-20)
DX: I13.2 Hypertensive heart and chronic kidney disease with heart failure and with stage 5 chronic kidney disease, or end stage renal disease (principal); J96.01 Acute respiratory failure with hypoxia; N18.6 End stage renal disease; I50.31 Acute diastolic (congestive) heart failure; J98.11 Atelectasis; E87.5 Hyperkalemia; D63.1 Anemia in chronic kidney disease; R00.1 Bradycardia, unspecified; E11.22 Type 2 diabetes mellitus with diabetic chronic kidney disease; Z20.822 Contact with and (suspected) exposure to COVID-19; Z79.4 Long term (current) use of insulin; Z82.49 Family history of ischemic heart disease and other diseases of the circulatory system; Z83.3 Family history of diabetes mellitus; Z99.2 Dependence on renal dialysis
CPT/HCPCS: 36415; 36600; 71045; 80048; 80053; 80202; 81001; 82805; 82962; 83880; 84439; 84443; 84484; 85025; 87081; 87426; 90935; 93005; 94640; 94660; 96374; 96375; 99291; G0378; J0461; J0696; J1815; J2543

== ENCOUNTER 2021-07-30 13:24 | Inpatient (IN) | payer OTHER ==
[~2021-07-30] VITALS: Ht 172.7 cm; Wt 136.1 kg
[2021-07-30 13:56] LABS: Basophils # (auto) 0 10 ^3/uL (0-0.2); Basophils % (auto) 0.6 % (0.0-2.0); Eosinophils # (auto) 0.1 10 ^3/uL (0-0.8); Eosinophils % (auto) 1.2 % (0.0-7.0); Hematocrit 28.2 % (41.0-53.0); Hemoglobin 9.2 g/dL (13.5-17.5); Lymphocytes # (auto) 1.5 10 ^3/uL (0.4-5.4); Lymphocytes % (auto) 22.5 % (10.0-50.0); Mean Corpuscular Hemoglobin 30.5 pg (28.0-32.0); Mean Corpuscular Hgb Conc. 32.8 g/dL (32.0-36.0); Mean Corpuscular Volume 93.1 fL (80.0-100.0); Monocytes # (auto) 0.5 10 ^3/uL (0-1.3); Neutrophils # (auto) 4.6 10 ^3/uL (1.6-8.6); Neutrophils % (auto) 68.7 % (37.0-80.0); Nucleated Red Blood Cells % 0.1 %; Red Blood Cells 3.03 10^6/uL (4.5-5.90); Red Cell Distribution Width 15.8 % (11.8-14.3); White Blood Cell 6.7 10^3/uL (4.4-10.8)
[2021-07-30 14:14] LABS: Anion Gap 12 (5-15); Blood Urea Nitrogen 13 mg/dL (7-18); Carbon Dioxide 22 mmol/L (21-32); Chloride 96 mmol/L (98-107); Glucose 103 mg/dL (74-106); Potassium 4.5 mmol/L (3.5-5.1); Sodium 130 mmol/L (136-145)
[2021-07-30 14:19] LABS: Alanine Aminotransferase 27 U/L (16-61); Alkaline Phosphatase 78 U/L (45-117); Aspartate Aminotransferase 20 U/L (15-37); BUN/Creatinine Ratio 2.8; Bilirubin, Total 0.6 mg/dL (0.2-1.0); GFR African American 16 mL/min; GFR Non-African American 13 mL/min; Total Protein 5.8 g/dL (6.4-8.2)
[2021-07-30] MEDS ORDERED: ONDANSETRON HCL 4 MG/2 ML VIAL IV PRN (21:15)
[2021-07-30] MEDS ORDERED: ACETAMINOPHEN 325 MG TAB PO PRN (21:15)
[2021-07-31 06:55] LABS: Basophils # (auto) 0.1 10 ^3/uL (0-0.2); Basophils % (auto) 0.7 % (0.0-2.0); Eosinophils # (auto) 0.2 10 ^3/uL (0-0.8); Hematocrit 29.4 % (41.0-53.0); Hemoglobin 10.4 g/dL (13.5-17.5); Lymphocytes # (auto) 1.4 10 ^3/uL (0.4-5.4); Lymphocytes % (auto) 20.3 % (10.0-50.0); Mean Corpuscular Hemoglobin 32.4 pg (28.0-32.0); Mean Corpuscular Hgb Conc. 35.4 g/dL (32.0-36.0); Mean Corpuscular Volume 91.6 fL (80.0-100.0); Monocytes # (auto) 0.4 10 ^3/uL (0-1.3); Monocytes % (auto) 6.6 % (0.0-12.0); Neutrophils # (auto) 4.7 10 ^3/uL (1.6-8.6); Neutrophils % (auto) 69.4 % (37.0-80.0); Nucleated Red Blood Cells % 0.1 %; Red Cell Distribution Width 15.1 % (11.8-14.3); White Blood Cell 6.8 10^3/uL (4.4-10.8)
[2021-07-31] MEDS: InsuLIN REG 1unit/0.01ml Soln (100units/ml) SC SCH ×2 (07:00→11:30)
[2021-07-31] MEDS ORDERED: DEXTROSE (50%) 50ML SYRG IV PRN (07:00)
[2021-07-31] MEDS: ACCU-CHEK COMFORT CURVE STRIP VI SCH ×2 (07:11→11:45)
[2021-07-31 07:20] LABS: Calcium 7.8 mg/dL (8.5-10.1); Potassium 4.6 mmol/L (3.5-5.1)
[2021-07-31 07:24] LABS: BUN/Creatinine Ratio 3.3
[2021-07-31] MEDS: CALCIUM ACETATE 667 MG CAP PO SCH ×2 (09:08→12:09)
[2021-07-31] MEDS ORDERED: FOLIC ACID 1 MG TAB PO SCH (10:45)
[2021-07-31] MEDS ORDERED: THIAMINE HCL 100 MG TAB PO SCH (10:45)
[2021-07-31] MEDS ORDERED: FOLI1TAB6 PO (14:03)
[2021-07-31] MEDS ORDERED: THIA100T10 PO (14:03)
[2021-07-31 16:00] VITALS: BP 155/80
== END 2021-07-31 16:55 | disposition home health service (06) | DRG 91 ==
LOC: EDBD 13:24 → ER 13:24 → OVERFLOW 21:02
PROVIDERS: ADMIT Nurse Practitioner; ATTEND Internal Medicine
DX: G92 Toxic encephalopathy (principal); N18.6 End stage renal disease; I13.2 Hypertensive heart and chronic kidney disease with heart failure and with stage 5 chronic kidney disease, or end stage renal disease; Z68.42 Body mass index [BMI] 45.0-49.9, adult; N25.81 Secondary hyperparathyroidism of renal origin; J44.9 Chronic obstructive pulmonary disease, unspecified; E66.01 Morbid (severe) obesity due to excess calories; D64.9 Anemia, unspecified; E11.22 Type 2 diabetes mellitus with diabetic chronic kidney disease; F10.229 Alcohol dependence with intoxication, unspecified; I95.9 Hypotension, unspecified; I50.9 Heart failure, unspecified; Z20.822 Contact with and (suspected) exposure to COVID-19; Z99.2 Dependence on renal dialysis; D63.1 Anemia in chronic kidney disease; M89.8X9 Other specified disorders of bone, unspecified site
CPT/HCPCS: 36415; 70450; 71045; 80048; 80053; 80320; 82962; 83880; 84484; 85025; 87426; 93005; 96374; G0378; J2405